=== PATIENT | female | born 1990 | race Hispanic/Latino ===

== ENCOUNTER 2016-05-25 22:10 | Outpatient (CLI) | payer OTHER | END 2016-05-25 22:56 | disposition home or self-care (01) | LOC: M LDO 22:10 | PROVIDERS: ATTEND Obstetrics & Gynecology | DX: O47.1 False labor at or after 37 completed weeks of gestation (principal); Z3A.39 39 weeks gestation of pregnancy ==

== ENCOUNTER 2016-05-27 19:47 | Inpatient (IN) | payer OTHER ==
[2016-05-27 20:02] VITALS: BP 128/78
[2016-05-27] MEDS ORDERED: LR 1,000 ML IV SCH ×2 (21:00)
[2016-05-27] MEDS ORDERED: PROMETHAZINE INJ 25 MG/ML VIAL (J2550) IV ONE (22:00)
[2016-05-27] MEDS ORDERED: BUTORPHANOL 2 MG/ML INJ (J0595) IV ONE (22:00)
[2016-05-27] MEDS ORDERED: FENTANYL 2MCG/ML ROPIVACAINE 0.2% NACL 250 ML CADD As Ordered ONE (23:39)
[2016-05-27 23:55] LABS: MEAN CORPUSCULAR HEMOGLOBIN 26.9 pg (27.0-33.0); MEAN CORPUSCULAR HGB CONC 32.2 g/dl (32.0-36.5); MEAN CORPUSCULAR VOLUME 83.4 fl (80.0-96.0); RED CELL DISTRIBUTION WIDTH 14.6 % (11.5-14.5); WHITE BLOOD COUNT 19.1 K/mm3 (4.0-10.0)
[2016-05-28] VITALS (66 sets, daily range): BP systolic 84–132; BP diastolic 46–68
[2016-05-28] MEDS ORDERED: ePHEDrine SULFATE 25 MG/5 ML(5MG/ML) SYRINGE As Ordered ONE (00:52)
[2016-05-28] MEDS ORDERED: NALOXONE INJ 0.4 MG/1 ML VIAL (J2310) IV PRN ×3 (01:00→05:45)
[2016-05-28] MEDS ORDERED: ePHEDrine SULFATE 25 MG/5 ML(5MG/ML) SYRINGE IV PRN (01:00)
[2016-05-28] MEDS ORDERED: LACTATED RINGER'S 1000 ML IV PRN (01:00)
[2016-05-28] MEDS ORDERED: ONDANSETRON 4MG/2ML VIAL (J2405) IV PRN ×4 (01:00→11:15)
[2016-05-28] MEDS ORDERED: EPIDURAL COMMENT XX SCH (01:00)
[2016-05-28] MEDS ORDERED: EPIDURAL/PCA KEYS XX PRN (01:00)
[2016-05-28] MEDS ORDERED: FENTANYL/ROPIVACAINE/NACL CADD 250 ML EPIDURAL SCH (01:00)
[2016-05-28] MEDS ORDERED: REFRIGERATOR IV KEYS XX PRN (01:00)
[2016-05-28] MEDS ORDERED: diphenhydrAMINE INJ 50MG/ML VIAL (J1200) IV PRN ×2 (01:00→06:30)
[2016-05-28] MEDS ORDERED: OXYTOCIN DRIP 30 UNITS in APPROPRIATE DILUENT 1 EA IV SCH (02:30)
[2016-05-28] MEDS ORDERED: ACETAMINOPHEN 500 MG TAB PO STA (02:44)
[2016-05-28] MEDS ORDERED: BUPIVACAINE HCL 0.25% 10 ML VIAL SC ONE (04:45)
[2016-05-28] MEDS ORDERED: ACETAMINOPHEN 650 MG SUPP PR SCH (04:45)
[2016-05-28] MEDS ORDERED: BICITRA 30ML SOLN UDC PO ONE (04:45)
[2016-05-28] MEDS ORDERED: BUPIVACAINE HCL 0.25% 30 ML VIAL As Ordered ONE (05:00)
[2016-05-28] MEDS ORDERED: MORPHINE PRES-FREE INJ 10 MG/10 ML VIAL (J2274) As Ordered ONE (05:11)
[2016-05-28] MEDS ORDERED: LIDOCAINE 2% W/EPIN INJ 20ML **PRES FREE As Ordered ONE (05:11)
[2016-05-28] MEDS ORDERED: OXYTOCIN INJ 10 UNITS/ML VIAL (J2590) As Ordered ONE ×2 (05:11→05:22)
[2016-05-28] MEDS ORDERED: SODIUM BICARBONATE 8.4% INJ 50MEQ 50 ML VIAL As Ordered ONE (05:11)
[2016-05-28] MEDS ORDERED: ONDANSETRON 4MG/2ML VIAL (J2405) As Ordered ONE (05:25)
[2016-05-28] MEDS ORDERED: PHENYLephrine HCL 500 MCG/5 ML (100MCG/ML) SYRINGE (J2370) As Ordered ONE (05:25)
[2016-05-28 05:42] LABS: CORD GAS ABE A -2.3; CORD GAS ABE V -3.5; CORD GAS HCO3 A 26.1 MEQ/L; CORD GAS HCO3 V 22.9 MEQ/L; CORD GAS O2 SAT A 16.4 %; CORD GAS O2 SAT V 37.1 %; CORD GAS PCO2 A 59.7 mmHg; CORD GAS PCO2 V 46.4 mmHg; CORD GAS PH A 7.259 UNITS; CORD GAS PH V 7.312 UNITS; CORD GAS PO2 A 11.7 mmHg; CORD GAS PO2 V 18.3 mmHg; CORD GAS SBC A 20.5 MEQ/L; CORD GAS TCO2 V 24.4 MEQ/L
[2016-05-28] MEDS ORDERED: NALBUPHINE HCL 10 MG/ML AMP (J2300) IV PRN ×2 (05:45→06:30)
[2016-05-28] MEDS ORDERED: fentaNYL 100 MCG/2 ML INJECTION (J3010) IV PRN (06:30)
[2016-05-28] MEDS ORDERED: MEPERIDINE INJ 25 MG/ML VIAL (J2175) IV PRN (06:30)
[2016-05-28] MEDS ORDERED: RHOGAM 300 MCG (1500 IU) INJ (J2790) IM SCH (06:45)
[2016-05-28] MEDS ORDERED: MOM 30ML SUSPENSION UDC PO PRN (06:45)
[2016-05-28] MEDS ORDERED: MEASLES,MUMPS,RUBELLA VACCINE INJ (MMR-II) (90707) SC SCH (06:45)
[2016-05-28] MEDS ORDERED: PERCOCET 5MG/325MG TAB PO PRN (06:45)
[2016-05-28] MEDS ORDERED: METHYLERGONOVINE MALEATE 0.2 MG TAB PO PRN (06:45)
[2016-05-28] MEDS ORDERED: ANUSOL HC CREAM 30GM TOP PRN (06:45)
[2016-05-28] MEDS: PRENATAL VITAMIN TAB PO SCH (09:08)
[2016-05-28] MEDS ORDERED: LR 1,000 ML IV SCH (09:45)
--- NOTE | 2016-05-28 11:02 | IPN ---
DATE OF SERVICE: 05/28/2016 This patient and her partner requested circumcision of their male infant after discussing the risks and benefits of the circumcision, the medical and nonmedical indications, the penile block, and aftercare. Both expressed understanding of the procedure and aftercare, signed, and witnessed the consent form. We await the medical clearance by the wood box maker.
[2016-05-28] MEDS: PERCOCET 5MG/325MG TAB PO PRN (12:12)
--- NOTE | 2016-05-28 12:36 | RO ---
DATE OF PROCEDURE: 05/28/2016 PREOPERATIVE DIAGNOSIS: Emergency section, non-reassuring heart strip. POSTOPERATIVE DIAGNOSIS: Non-reassuring heart strip, emergency section remote from delivery. PROCEDURE: SURGEON: Dr. Matthieu Weldon TOP ICER: Dr. Holly Lemus ANESTHESIA: Spinal. ESTIMATED BLOOD LOSS: 500 mL. Under adequate anesthesia, prepped and draped in the supine position, Rodríguez catheter in the bladder draining clear urine. Acetaminophen suppository 1300 mg per rectum and Ancef 2 grams given preoperatively. Time-out performed. Pfannenstiel incision was made two fingerbreadths above the symphysis pubis passing through abdominal layers securing hemostasis. Opening peritoneal cavity, bladder reflected well down anteriorly, low transverse incision was made into the uterus. There was meconium behind the head, a moderate amount. Dr. Olivas in attendance for resuscitation. Delivered a live male infant weighing 9 pounds 2 ounces or 4134 grams. Apgars of 9 and 9 at one and five minutes respectively. Placenta was manually removed, three-vessel and the cord membranes and tissues intact. Arterial and venous pH was performed. The uterus contracted well down on Pitocin. The lower segment was oversewn in usual fashion in two layers and reperitonealization was performed. With instrument and pad count correct, the abdomen was then closed with running stitch for the peritoneum, same for the fascia, interrupted subcutaneous Dexon to the skin, Marcaine 0.25% to the skin and spray. The patient was taken back to recovery in good condition.
--- NOTE | 2016-05-28 21:40 | HPE ---
DATE OF ADMISSION: 05/27/2016 A 25-year-old 1, para 0, last menstrual period (LMP) 08/29/2015, estimated date of confinement (EDC) 06/04/2016 at 38 and 6 weeks of gestation with a history of having had her membranes stripped and having tetanic contractions without rest. She was found to be 2 cm at the time of stripping of membranes. Her risk factors are she has syncopal episodes, has a loop recorder, migraines, and gastroesophageal reflux disease (GERD). LABORATORY DATA: O positive, HIV negative, hepatitis negative, RPR negative, rubella immune, Varicella immune. Pap normal. Urine negative. Gonorrhea and chlamydia are negative. One-hour glucose was 151, 3-hour glucose 96/104/126/120. GBS negative. On examination, we have a significantly distressed female. Symphysis fundus height is 38, vertex, still 1-2 cm with show. There is a bulging bag noted, 50% effaced, and having moderate contractions. Her urine is 10/10, pH 5, negative. Blood pressure 128/78, respirations are 92, pulse is 97, and respiratory rate is 18. She is normocephalic, atraumatic. Neck: Full range of motion. Pupils equal and reactive to light. She has a category 1 strip, but she is having contractions 1-2 minutes apart of moderate intensity. Distal pulses are symmetric. No evidence of deep vein thrombosis (DVT) pulmonary embolism (PE), or superficial phlebitis. Chest is clear bilaterally to bases. No wheezes or rhonchi. No costovertebral angle (CVA) tenderness. Symphysis fundus height is appropriate. Four-quadrant bowel sounds are noted, and there is rest between the contractions. She has no rashes, lesions, or pruritus. No arthralgia or myalgia. No complaints of cough, wheezes, shortness of breath, or dyspnea on exertion. No chest pain. Not bleeding. Neurologically complete. No incontinence, urgency. No nausea, vomiting, diarrhea, or constipation. No diabetic issues. No LICENSING SPECIALIST issues. PAST MEDICAL HISTORY: The syncopal episodes, in which she has a loop recorder. SOCIAL HISTORY: No tobacco or alcohol. No drug abuse. She is . There is no domestic violence. In summary, I have a 38 and 6 weeks of gestation with activated contractions secondary to membrane stripping. Our plan of management is to try and hydrate and bring down the contractions. Possibility of use of terbutaline may be an option. If she progresses to admit her and augment with artificial rupture of membranes (AROM). We will re-evaluate her in 2 hours' time. Options were discussed with the patient her partner. We spent 40 minutes in the discussion.
[2016-05-29] VITALS (7 sets, daily range): BP systolic 93–112; BP diastolic 49–69
[2016-05-29] MEDS: PRENATAL VITAMIN TAB PO SCH (07:29)
[2016-05-29] MEDS: PERCOCET 5MG/325MG TAB PO PRN ×3 (07:30→19:24)
[2016-05-29] MEDS: IBUPROFEN 800 MG TAB PO SCH ×4 (07:30→23:54)
[2016-05-29 08:11] LABS: MEAN CORPUSCULAR HEMOGLOBIN 27.1 pg (27.0-33.0); MEAN CORPUSCULAR HGB CONC 32.3 g/dl (32.0-36.5); MEAN CORPUSCULAR VOLUME 83.9 fl (80.0-96.0); RED CELL DISTRIBUTION WIDTH 15.1 % (11.5-14.5); WHITE BLOOD COUNT 17.4 K/mm3 (4.0-10.0)
[2016-05-30 05:44] VITALS: BP 109/53
[2016-05-30] MEDS: IBUPROFEN 800 MG TAB PO SCH (08:31)
[2016-05-30] MEDS: PERCOCET 5MG/325MG TAB PO PRN (08:32)
[2016-05-30] MEDS: PRENATAL VITAMIN TAB PO SCH (08:32)
[2016-05-30] MEDS ORDERED: MOTR200T44 PO (08:44)
[2016-05-30] MEDS ORDERED: OXYC1TAB23 PO (08:44)
== END 2016-05-30 13:45 | disposition home or self-care (01) | DRG 766 ==
LOC: M LDO 19:47 → M LDI 23:37 → M OBS 05-28 07:59
PROVIDERS: ADMIT Obstetrics & Gynecology; ATTEND Obstetrics & Gynecology
PROC: 10D00Z1 Extraction of Products of Conception, Low, Open Approach (ICD-10-PCS; principal; 2016-05-28 05:02)
DX: O76 Abnormality in fetal heart rate and rhythm complicating labor and delivery (principal); Z37.0 Single live birth; Z3A.38 38 weeks gestation of pregnancy; K21.9 Gastro-esophageal reflux disease without esophagitis; O99.63 Diseases of the digestive system complicating the puerperium